=== PATIENT | female | born 1960 | race Caucasian/White ===

== ENCOUNTER 2023-07-13 12:13 | Inpatient (IN) | payer MEDICAID ==
[~2023-07-13] VITALS: Ht 162.6 cm; Wt 90.0 kg
[2023-07-13 12:43] LABS: BASOPHILS % (AUTO) 0.6 % (0-1); EOSINOPHILS # (AUTO) 0.1 X10'3 (0-0.9); HEMOGLOBIN 12.8 g/dl (12.0-16.0); LYMPHOCYTES # (AUTO) 0.5 X10'3 (1.1-4.8); LYMPHOCYTES % (AUTO) 5.6 % (21-51); MEAN CORPUSCULAR HEMOGLOBIN 28.3 PG (27.0-31.0); MEAN CORPUSCULAR HGB CONC 31.3 g/dL (33.0-36.5); MEAN CORPUSCULAR VOLUME 90.4 FL (78-98); MEAN PLATELET VOLUME 9.5 FL (7.4-10.4); MONOCYTES # (AUTO) 0.6 X10'3 (0-0.9); MONOCYTES % (AUTO) 7.5 % (2-12); NEUTROPHILS % (AUTO) 85.3 % (42-75); PLATELET COUNT 194 X10'3 (140-440); RED BLOOD COUNT 4.54 X10'6 (4.20-5.60); RED CELL DISTRIBUTION WIDTH 14.9 % (11.5-14.5); WHITE BLOOD COUNT 8.2 X10'3 (4.5-11.0)
[2023-07-13 12:56] LABS: ALANINE AMINOTRANSFERASE 31 U/L (12-78); ALBUMIN 3.5 G/DL (3.4-5.0); ALBUMIN/GLOBULIN RATIO 0.9 (1.1-1.5); ALKALINE PHOSPHATASE 92 IU/L (46-116); ANION GAP 8 (8-16); ASPARTATE AMINO TRANSFERASE 26 U/L (10-37); BILIRUBIN,TOTAL 0.4 MG/DL (0.1-1.0); BLOOD UREA NITROGEN 16 MG/DL (7-18); BUN/CREATININE RATIO 28.1 (10.0-20.0); CALCIUM 9.4 MG/DL (8.5-10.1); CHLORIDE 97 MMOL/L (99-107); CREATININE 0.57 MG/DL (0.40-0.90); GLUCOSE 138 MG/DL (70-104); POTASSIUM 3.6 MMOL/L (3.5-5.1); SODIUM 143 MMOL/L (135-145); TOTAL CARBON DIOXIDE 38.5 MMOL/L (24-32); TOTAL PROTEIN 7.6 G/DL (6.4-8.2); eCRCL 87 ML/MIN; eGFR > 90 ML/MIN
[2023-07-13 13:03] LABS: PRO BRAIN NATRIURETIC PEPTIDE 201 PG/ML (0-125)
[2023-07-13] MEDS ORDERED: albuterol 2.5 MG/3 ML nebule CONTNEB PRN (14:40)
[2023-07-13] MEDS ORDERED: ipratropium 0.5 MG/2.5ML nebule IH ONE (14:40)
[2023-07-13] MEDS ORDERED: methylPREDNISolone sod succ 125mg/2ml vial IV ONE (14:45)
[2023-07-13 16:19] LABS: D-DIMER 1.36 MG/L FEU (0-0.50)
[2023-07-13] MEDS ORDERED: iohexol 350MG/ML 100ml bottle IV ONE (17:12)
[2023-07-13] MEDS ORDERED: CefTRIAXone 2gm/D5W 50ml BAG 50 ML IV ONE (18:50)
[2023-07-14] VITALS (13 sets, daily range): BP systolic 114–127; BP diastolic 54–63; PULSE 72–90; RESP 12–20; TEMP 97; O2SAT 90–98
[2023-07-14] MEDS ORDERED: diphenhydrAMINE 50 mg/ml inj IV PRN (00:35)
[2023-07-14] MEDS ORDERED: ipratropium/albuterol 3ml nebule NEB PRN ×2 (00:35→12:45)
[2023-07-14] MEDS ORDERED: morphine 2 MG/ML inj. syringe IV PRN (00:35)
[2023-07-14] MEDS ORDERED: bisacodyl 10mg suppository rectal RC PRN (00:35)
[2023-07-14] MEDS ORDERED: magnesium hydroxide 30ml (MOM) UD suspension PO PRN (00:35)
[2023-07-14] MEDS ORDERED: acetaminophen 650mg rectal suppository RC PRN (00:35)
[2023-07-14] MEDS ORDERED: acetaminophen 325mg tablet PO PRN ×2 (00:35)
[2023-07-14] MEDS ORDERED: diphenhydrAMINE 25mg capsule PO PRN (00:35)
[2023-07-14] MEDS ORDERED: ondansetron 4mg rapidly disintigrating tab PO PRN (00:35)
[2023-07-14] MEDS ORDERED: mag hydrox/Alum hydrox/simeth 30ml oral suspension PO PRN (00:35)
[2023-07-14] MEDS ORDERED: ondansetron/PF 4mg/2ml inj IV PRN (00:35)
[2023-07-14 01:37] LABS: ABG BASE EXCESS 10.9 mmol/L (-2.0-2.0); ABG HCO3 40.1 mmol/L (22.0-26.0); ABG OXYGEN SATURATION 96.8 % (94-97); ABG PCO2 (T) 74.7 mmHg (32.0-45.0); ABG PH (T) 7.346 (7.350-7.450); ALLEN'S TEST POSITIVE; FHHb 3.2 % (0.0-5.0); FLOW 4 L/min; FMetHb 0.4 % (0.0-1.5); FO2Hb 95.4 % (94-97); MODE MASK - BIPAP; PATIENT TEMPERATURE 36.7; TOTAL HEMOGLOBIN 14.5 G/dl (12.0-16.0)
[2023-07-14] MEDS: normal saline 1000ml 1,000 ML IV SCH ×2 (01:50→10:35)
[2023-07-14 02:29] LABS: HEMOGLOBIN A1C 6.1 % (4.5-6.2)
[2023-07-14 02:31] LABS: APTT 24 SECONDS (22-32); PROTHROMBIN TIME 10.8 SECONDS (9.0-12.0)
[2023-07-14 02:40] LABS: MAGNESIUM 2.1 MG/DL (1.5-2.4); PHOSPHORUS 4.5 MG/DL (2.3-4.5); THYROID STIMULATING HORMONE 0.97 ulU/ml (0.34-4.50)
[2023-07-14 02:44] LABS: URINE AMPHETAMINE SCREEN NEGATIVE (Neg); URINE BARBITUATE SCREEN NEGATIVE (Neg); URINE BENZODIAZEPINES SCREEN NEGATIVE (Neg); URINE CANNABINOID SCREEN NEGATIVE (Neg); URINE COCAINE SCREEN NEGATIVE (Neg); URINE METHADONE SCREEN NEGATIVE (Neg); URINE OPIATE SCREEN NEGATIVE (Neg); URINE PHENCYCLIDINE SCREEN NEGATIVE (Neg)
[2023-07-14 02:51] LABS: BILIRUBIN,URINE NEGATIVE (Neg); CLARITY,URINE CLEAR (Clear); COLOR,URINE YELLOW (Yellow); GLUCOSE, URINE NEGATIVE (Neg); KETONES,URINE NEGATIVE (Neg); LEUKOCYTE ESTERASE ,URINE NEGATIVE (Neg); NITRITES, URINE NEGATIVE (Neg); OCCULT BLOOD,URINE TRACE-INTACT (Neg); PH,URINE 7.5 (4.8-8.0); PROTEIN,URINE TRACE mg/dl (Neg); UROBILINOGEN,URINE 0.2 E.U/dL (0.2-1.0)
[2023-07-14 02:53] LABS: UA COLLECTION TYPE STRAIGHT CATH
[2023-07-14 02:58] LABS: AMORPHOUS PHOSPHATES 2+; MUCUS STRANDS NONE SEEN /LPF (Neg); SQUAMOUS EPITHELIAL CELL,UR FEW /LPF (FEW)
[2023-07-14 02:59] LABS: BACTERIA,URINE NONE SEEN /HPF (Neg); WBC,URINE 0-4 /HPF (0-4)
[2023-07-14] MEDS: docusate sod 100mg capsule PO SCH ×2 (07:09→20:40)
[2023-07-14 07:13] LABS: ABG BASE EXCESS 7.6 mmol/L (-2.0-2.0); ABG HCO3 35.3 mmol/L (22.0-26.0); ABG PCO2 (T) 63.7 mmHg (32.0-45.0); ABG PH (T) 7.361 (7.350-7.450); ABG PO2 (T) 68.9 mmHg (75.0-100.0); ALLEN'S TEST POSITIVE; FCOHb 0.9 % (0.0-3.9); FHHb 6.9 % (0.0-5.0); FMetHb 0.2 % (0.0-1.5); MODE MASK - BIPAP; PATIENT TEMPERATURE 36.8; TOTAL HEMOGLOBIN 13.6 G/dl (12.0-16.0)
[2023-07-14] MEDS: CefTRIAXone/D5W-Rocephin 1gm 50 ML IV SCH (07:48)
[2023-07-14] MEDS: heparin, porcine 5000 units/ml vial SQ SCH ×2 (07:49→20:41)
[2023-07-14] MEDS ORDERED: methylPREDNISolone sod succ 125mg/2ml vial IV SCH (08:00)
[2023-07-14] MEDS: azithromycin/NS 500mg/250ml 250 ML IV SCH (09:10)
[2023-07-14] MEDS: pantoprazole 40mg Tablet.DR PO SCH (09:10)
[2023-07-14] MEDS: methylPREDNISolone sod succ/PF 40mg inj. IV SCH ×2 (14:37→20:40)
[2023-07-14] MEDS: ipratropium/albuterol 3ml nebule NEB SCH ×2 (19:43→23:38)
[2023-07-14] MEDS: HYDROcodone/acetaminophen 5mg/325mg tablet PO PRN (20:41)
[2023-07-14] MEDS ORDERED: temazepam 15mg capsule PO PRN (21:00)
[2023-07-15] VITALS (18 sets, daily range): BP systolic 115–145; BP diastolic 55–85; PULSE 50–89; RESP 16–20; TEMP 97.2–98.8; O2SAT 94–97
[2023-07-15] MEDS: HYDROcodone/acetaminophen 5mg/325mg tablet PO PRN (01:54)
[2023-07-15] MEDS: methylPREDNISolone sod succ/PF 40mg inj. IV SCH ×4 (01:55→21:32)
[2023-07-15] MEDS: ipratropium/albuterol 3ml nebule NEB SCH ×6 (03:14→23:31)
[2023-07-15 06:56] LABS: BASOPHILS % (AUTO) 0.2 % (0-1); EOSINOPHILS % (AUTO) 0 % (0-6); HEMATOCRIT 40.9 % (35.0-45.0); HEMOGLOBIN 13.1 g/dl (12.0-16.0); LYMPHOCYTES # (AUTO) 0.4 X10'3 (1.1-4.8); LYMPHOCYTES % (AUTO) 6.1 % (21-51); MEAN CORPUSCULAR HEMOGLOBIN 28.7 PG (27.0-31.0); MEAN CORPUSCULAR VOLUME 89.6 FL (78-98); MONOCYTES # (AUTO) 0.2 X10'3 (0-0.9); MONOCYTES % (AUTO) 2.4 % (2-12); NEUTROPHILS # (AUTO) 6.4 X10'3 (1.8-7.7); NEUTROPHILS % (AUTO) 91.3 % (42-75); PLATELET COUNT 210 X10'3 (140-440); RED BLOOD COUNT 4.57 X10'6 (4.20-5.60); RED CELL DISTRIBUTION WIDTH 14.5 % (11.5-14.5); WHITE BLOOD COUNT 7.1 X10'3 (4.5-11.0)
[2023-07-15 07:16] LABS: ALANINE AMINOTRANSFERASE 40 U/L (12-78); ALBUMIN 3.2 G/DL (3.4-5.0); ALBUMIN/GLOBULIN RATIO 0.8 (1.1-1.5); ALKALINE PHOSPHATASE 86 IU/L (46-116); ANION GAP 6 (8-16); ASPARTATE AMINO TRANSFERASE 25 U/L (10-37); BILIRUBIN,TOTAL 0.4 MG/DL (0.1-1.0); BLOOD UREA NITROGEN 18 MG/DL (7-18); BUN/CREATININE RATIO 32.1 (10.0-20.0); CALCIUM 9.5 MG/DL (8.5-10.1); CHLORIDE 101 MMOL/L (99-107); CHOL/HDL RATIO 3.5 (0.00-4.99); CHOLESTEROL 279 MG/DL (0-200); CREATININE 0.56 MG/DL (0.40-0.90); GLUCOSE 164 MG/DL (70-104); HDL CHOLESTEROL 79 MG/DL (35-60); LDL CHOLESTEROL 158 MG/DL (50-100); POTASSIUM 3.7 MMOL/L (3.5-5.1); SODIUM 142 MMOL/L (135-145); TOTAL PROTEIN 7.2 G/DL (6.4-8.2); TRIGLYCERIDES 82 MG/DL (20-135); eCRCL 89 ML/MIN; eGFR > 90 ML/MIN
[2023-07-15] MEDS: docusate sod 100mg capsule PO SCH ×2 (08:00→20:00)
[2023-07-15] MEDS: heparin, porcine 5000 units/ml vial SQ SCH ×2 (10:51→21:30)
[2023-07-15] MEDS: CefTRIAXone/D5W-Rocephin 1gm 50 ML IV SCH (10:51)
[2023-07-15] MEDS: pantoprazole 40mg Tablet.DR PO SCH (10:53)
[2023-07-15] MEDS: azithromycin/NS 500mg/250ml 250 ML IV SCH (11:46)
[2023-07-16] VITALS (19 sets, daily range): BP systolic 131–156; BP diastolic 74–82; PULSE 76–100; RESP 16–20; TEMP 97.4–99.3; O2SAT 93–99
[2023-07-16] MEDS: methylPREDNISolone sod succ/PF 40mg inj. IV SCH ×4 (01:27→19:36)
[2023-07-16] MEDS: ipratropium/albuterol 3ml nebule NEB SCH ×6 (03:13→22:52)
[2023-07-16 07:26] LABS: BASOPHILS % (AUTO) 0.1 % (0-1); EOSINOPHILS % (AUTO) 0 % (0-6); HEMATOCRIT 38.9 % (35.0-45.0); HEMOGLOBIN 12.6 g/dl (12.0-16.0); LYMPHOCYTES # (AUTO) 0.4 X10'3 (1.1-4.8); LYMPHOCYTES % (AUTO) 7.6 % (21-51); MEAN CORPUSCULAR HGB CONC 32.3 g/dL (33.0-36.5); MEAN CORPUSCULAR VOLUME 89.7 FL (78-98); MEAN PLATELET VOLUME 9.8 FL (7.4-10.4); MONOCYTES # (AUTO) 0.1 X10'3 (0-0.9); MONOCYTES % (AUTO) 2.9 % (2-12); NEUTROPHILS # (AUTO) 4.6 X10'3 (1.8-7.7); NEUTROPHILS % (AUTO) 89.4 % (42-75); PLATELET COUNT 185 X10'3 (140-440); RED BLOOD COUNT 4.34 X10'6 (4.20-5.60); RED CELL DISTRIBUTION WIDTH 14.9 % (11.5-14.5); WHITE BLOOD COUNT 5.2 X10'3 (4.5-11.0)
[2023-07-16 08:09] LABS: ALANINE AMINOTRANSFERASE 44 U/L (12-78); ALBUMIN 3.2 G/DL (3.4-5.0); ALBUMIN/GLOBULIN RATIO 0.9 (1.1-1.5); ALKALINE PHOSPHATASE 80 IU/L (46-116); ANION GAP 7 (8-16); ASPARTATE AMINO TRANSFERASE 24 U/L (10-37); BILIRUBIN,TOTAL 0.2 MG/DL (0.1-1.0); BLOOD UREA NITROGEN 14 MG/DL (7-18); BUN/CREATININE RATIO 26.4 (10.0-20.0); CALCIUM 8.9 MG/DL (8.5-10.1); CHLORIDE 105 MMOL/L (99-107); CREATININE 0.53 MG/DL (0.40-0.90); GLUCOSE 131 MG/DL (70-104); POTASSIUM 3.4 MMOL/L (3.5-5.1); SODIUM 145 MMOL/L (135-145); TOTAL CARBON DIOXIDE 33.1 MMOL/L (24-32); TOTAL PROTEIN 6.9 G/DL (6.4-8.2); eCRCL 94 ML/MIN; eGFR > 90 ML/MIN
[2023-07-16] MEDS: CefTRIAXone/D5W-Rocephin 1gm 50 ML IV SCH (10:34)
[2023-07-16] MEDS: heparin, porcine 5000 units/ml vial SQ SCH ×2 (10:37→19:36)
[2023-07-16] MEDS: docusate sod 100mg capsule PO SCH ×2 (10:39→19:37)
[2023-07-16] MEDS: azithromycin/NS 500mg/250ml 250 ML IV SCH (11:49)
[2023-07-16] MEDS: pantoprazole 40mg Tablet.DR PO SCH (15:13)
[2023-07-16] MEDS ORDERED: potassium Cl 40MEQ/1/2NS 520ml 520 ML IV PRN ×2 (20:10)
[2023-07-16] MEDS ORDERED: potassium Cl 20 mEq SR tablet PO PRN (20:10)
[2023-07-16] MEDS: HYDROcodone/acetaminophen 5mg/325mg tablet PO PRN (20:24)
[2023-07-17] VITALS (10 sets, daily range): BP systolic 93–146; BP diastolic 44–89; PULSE 71–88; RESP 16–20; TEMP 97.9–98.3; O2SAT 92–99
[2023-07-17] MEDS: potassium Cl 20 mEq SR tablet PO PRN ×2 (00:55→05:06)
[2023-07-17] MEDS: methylPREDNISolone sod succ/PF 40mg inj. IV SCH ×3 (01:41→13:51)
[2023-07-17] MEDS: ipratropium/albuterol 3ml nebule NEB SCH ×4 (03:25→16:05)
[2023-07-17 07:15] LABS: BASOPHILS % (AUTO) 0 % (0-1); EOSINOPHILS % (AUTO) 0 % (0-6); HEMATOCRIT 36.6 % (35.0-45.0); LYMPHOCYTES # (AUTO) 0.4 X10'3 (1.1-4.8); LYMPHOCYTES % (AUTO) 6.5 % (21-51); MEAN CORPUSCULAR HEMOGLOBIN 29.3 PG (27.0-31.0); MEAN CORPUSCULAR HGB CONC 32.9 g/dL (33.0-36.5); MEAN CORPUSCULAR VOLUME 88.9 FL (78-98); MEAN PLATELET VOLUME 9.9 FL (7.4-10.4); MONOCYTES # (AUTO) 0.2 X10'3 (0-0.9); MONOCYTES % (AUTO) 2.8 % (2-12); NEUTROPHILS # (AUTO) 6.1 X10'3 (1.8-7.7); NEUTROPHILS % (AUTO) 90.7 % (42-75); PLATELET COUNT 169 X10'3 (140-440); RED BLOOD COUNT 4.12 X10'6 (4.20-5.60); RED CELL DISTRIBUTION WIDTH 14.6 % (11.5-14.5); WHITE BLOOD COUNT 6.7 X10'3 (4.5-11.0)
[2023-07-17 07:29] LABS: ALANINE AMINOTRANSFERASE 40 U/L (12-78); ALBUMIN/GLOBULIN RATIO 0.9 (1.1-1.5); ALKALINE PHOSPHATASE 74 IU/L (46-116); ANION GAP 5 (8-16); ASPARTATE AMINO TRANSFERASE 21 U/L (10-37); BILIRUBIN,TOTAL 0.2 MG/DL (0.1-1.0); BLOOD UREA NITROGEN 14 MG/DL (7-18); BUN/CREATININE RATIO 31.1 (10.0-20.0); CALCIUM 9.1 MG/DL (8.5-10.1); CHLORIDE 105 MMOL/L (99-107); CREATININE 0.45 MG/DL (0.40-0.90); GLUCOSE 145 MG/DL (70-104); POTASSIUM 4.2 MMOL/L (3.5-5.1); SODIUM 141 MMOL/L (135-145); TOTAL CARBON DIOXIDE 30.8 MMOL/L (24-32); TOTAL PROTEIN 6.4 G/DL (6.4-8.2); eCRCL 111 ML/MIN; eGFR > 90 ML/MIN
[2023-07-17] MEDS ORDERED: K and/or MAG REPLACEMENT MC SCH (08:00)
[2023-07-17] MEDS: normal saline 1000ml 1,000 ML IV SCH (08:53)
[2023-07-17] MEDS: CefTRIAXone/D5W-Rocephin 1gm 50 ML IV SCH (09:25)
[2023-07-17] MEDS: pantoprazole 40mg Tablet.DR PO SCH (09:28)
[2023-07-17] MEDS: docusate sod 100mg capsule PO SCH (09:28)
[2023-07-17] MEDS: heparin, porcine 5000 units/ml vial SQ SCH (09:29)
[2023-07-17] MEDS: azithromycin/NS 500mg/250ml 250 ML IV SCH (10:31)
[2023-07-18] MEDS ORDERED: azithromycin 250mg tablet PO SCH (08:00)
== END 2023-07-17 16:50 | DRG 139 ==
LOC: ER 12:14 → ED HOLD 07-14 00:37 → PCU 3S 07-14 08:27
PROVIDERS: ADMIT Family Medicine; ATTEND Family Medicine
PROC: 5A09357 Assistance with Respiratory Ventilation, Less than 24 Consecutive Hours, Continuous Positive Airway Pressure (ICD-10-PCS; principal; 2023-07-14)
PROC: 5A09357 Assistance with Respiratory Ventilation, Less than 24 Consecutive Hours, Continuous Positive Airway Pressure (ICD-10-PCS; 2023-07-16)
DX: J18.9 Pneumonia, unspecified organism (principal); J96.01 Acute respiratory failure with hypoxia; G93.49 Other encephalopathy; J96.02 Acute respiratory failure with hypercapnia; I11.0 Hypertensive heart disease with heart failure; I50.32 Chronic diastolic (congestive) heart failure; J44.0 Chronic obstructive pulmonary disease with (acute) lower respiratory infection; Z20.822 Contact with and (suspected) exposure to COVID-19; G47.33 Obstructive sleep apnea (adult) (pediatric); G89.4 Chronic pain syndrome; I16.0 Hypertensive urgency; I25.10 Atherosclerotic heart disease of native coronary artery without angina pectoris; J44.1 Chronic obstructive pulmonary disease with (acute) exacerbation; Z88.1 Allergy status to other antibiotic agents; Z98.1 Arthrodesis status; Z88.8 Allergy status to other drugs, medicaments and biological substances
CPT/HCPCS: 36415; 36600; 70450; 71045; 71275; 72125; 80053; 80061; 80305; 81001; 82803; 83036; 83605; 83735; 83880; 84100; 84145; 84443; 84484; 85018; 85025; 85379; 85610; 85730; 87040; 87811; 93306; 94640; 94660; 94760; 97110; 97161; 97530; 99285; A4338; A4620; C1758; G0378; J0456; J0696; J1644; J2920; J2930; J3490; J7030; Q9967

== ENCOUNTER 2023-08-17 08:56 | Inpatient (IN) | payer MEDICAID ==
[~2023-08-17] VITALS: Ht 157.5 cm; Wt 84.7 kg
[2023-08-17] MEDS ORDERED: ipratropium/albuterol 3ml nebule NEB ONE (11:15)
[2023-08-17 11:29] LABS: BASOPHILS % (AUTO) 0.3 % (0-1); EOSINOPHILS # (AUTO) 0.1 X10'3 (0-0.9); EOSINOPHILS % (AUTO) 1.3 % (0-6); HEMATOCRIT 35.8 % (35.0-45.0); HEMOGLOBIN 11.6 g/dl (12.0-16.0); LYMPHOCYTES # (AUTO) 1.3 X10'3 (1.1-4.8); LYMPHOCYTES % (AUTO) 22.6 % (21-51); MEAN CORPUSCULAR HEMOGLOBIN 28.9 PG (27.0-31.0); MEAN CORPUSCULAR HGB CONC 32.4 g/dL (33.0-36.5); MEAN CORPUSCULAR VOLUME 88.9 FL (78-98); MEAN PLATELET VOLUME 8.5 FL (7.4-10.4); MONOCYTES # (AUTO) 0.4 X10'3 (0-0.9); NEUTROPHILS # (AUTO) 3.8 X10'3 (1.8-7.7); NEUTROPHILS % (AUTO) 67.8 % (42-75); PLATELET COUNT 182 X10'3 (140-440); RED BLOOD COUNT 4.03 X10'6 (4.20-5.60); RED CELL DISTRIBUTION WIDTH 14.2 % (11.5-14.5); WHITE BLOOD COUNT 5.6 X10'3 (4.5-11.0)
[2023-08-17 11:52] LABS: ALANINE AMINOTRANSFERASE 36 U/L (12-78); ALBUMIN 2.8 G/DL (3.4-5.0); ALBUMIN/GLOBULIN RATIO 0.9 (1.1-1.5); ALKALINE PHOSPHATASE 60 IU/L (46-116); ANION GAP 3 (8-16); ASPARTATE AMINO TRANSFERASE 12 U/L (10-37); BILIRUBIN,TOTAL 0.1 MG/DL (0.1-1.0); BLOOD UREA NITROGEN 16 MG/DL (7-18); BUN/CREATININE RATIO 36.4 (10.0-20.0); CALCIUM 9.4 MG/DL (8.5-10.1); CHLORIDE 103 MMOL/L (99-107); CREATININE 0.44 MG/DL (0.40-0.90); GLUCOSE 125 MG/DL (70-104); POTASSIUM 3.4 MMOL/L (3.5-5.1); PRO BRAIN NATRIURETIC PEPTIDE 211 PG/ML (0-125); SODIUM 144 MMOL/L (135-145); TOTAL CARBON DIOXIDE 37.8 MMOL/L (24-32); TOTAL PROTEIN 5.8 G/DL (6.4-8.2); eCRCL 104 ML/MIN; eGFR > 90 ML/MIN
[2023-08-17 12:29] VITALS: PULSE 77; PULSE 78; RESP 15; RESP 18; O2SAT 98
[2023-08-17] MEDS ORDERED: LORazepam 2 mg/ml vial IV STA (14:54)
[2023-08-17] MEDS ORDERED: potassium Cl 20 mEq SR tablet PO STA (14:54)
[2023-08-17 15:22] LABS: BILIRUBIN,URINE NEGATIVE (Neg); CLARITY,URINE CLOUDY (Clear); COLOR,URINE YELLOW (Yellow); GLUCOSE, URINE NEGATIVE (Neg); KETONES,URINE NEGATIVE (Neg); LEUKOCYTE ESTERASE ,URINE TRACE (Neg); NITRITES, URINE POSITIVE (Neg); OCCULT BLOOD,URINE TRACE-INTACT (Neg); PH,URINE 5.5 (4.8-8.0); PROTEIN,URINE NEGATIVE (Neg); UROBILINOGEN,URINE 0.2 E.U/dL (0.2-1.0)
[2023-08-17] MEDS ORDERED: magnesium Cl slow-release 64mg tablet PO PRN (15:25)
[2023-08-17] MEDS ORDERED: magnesium 4gm in 100ml NS 100 ML IV PRN (15:25)
[2023-08-17] MEDS ORDERED: magnesium hydroxide 30ml (MOM) UD suspension PO PRN (15:25)
[2023-08-17] MEDS ORDERED: magnesium 2GM in 50ml NS 50 ML IV PRN (15:25)
[2023-08-17] MEDS ORDERED: potassium Cl 20 mEq SR tablet PO PRN ×2 (15:25)
[2023-08-17] MEDS ORDERED: potassium Cl 40MEQ/1/2NS 520ml 520 ML IV PRN (15:25)
[2023-08-17] MEDS ORDERED: mag hydrox/Alum hydrox/simeth 30ml oral suspension PO PRN (15:25)
[2023-08-17] MEDS ORDERED: normal saline 1000ml 1,000 ML IV STA (15:31)
[2023-08-17 15:39] LABS: UA COLLECTION TYPE FOLEY CATH
[2023-08-17 15:43] LABS: WBC,URINE 30-50 /HPF (0-4)
[2023-08-17 15:46] LABS: AMORPHOUS URATES 1+; BACTERIA,URINE 3+ /HPF (Neg); CAL OXALATE CRYSTALS 1+ /HPF (NEGATIVE); HYALINE CASTS 0-3 /LPF (NEGATIVE); MUCUS STRANDS FEW /LPF (Neg); RENAL CELLS, URINE FEW /HPF; SQUAMOUS EPITHELIAL CELL,UR FEW /LPF (FEW); WBC CLUMPS,URINE FEW /HPF (NEGATIVE); YEAST FEW /HPF (NEGATIVE)
[2023-08-17] MEDS ORDERED: ENOX40DI8 SUBCUT (15:54)
[2023-08-17] MEDS ORDERED: GLIP5TAB23 PO (15:54)
[2023-08-17] MEDS ORDERED: AMLO2.5T2 PO (15:54)
[2023-08-17] MEDS ORDERED: POLY17PO10 PO (15:54)
[2023-08-17] MEDS ORDERED: PRED1TAB PO (15:54)
[2023-08-17] MEDS ORDERED: ALB0.5UD NEB (15:54)
[2023-08-17] MEDS ORDERED: INSU100V49 (15:54)
[2023-08-17] MEDS ORDERED: NITR0.4T51 SL (15:54)
[2023-08-17] MEDS ORDERED: ATR0.5NEB IH (15:54)
[2023-08-17] MEDS ORDERED: ALPR-624 PO (15:54)
[2023-08-17] MEDS ORDERED: ACET325T54 PO (15:54)
[2023-08-17] MEDS ORDERED: HYDR-3965 PO (15:54)
[2023-08-17] MEDS ORDERED: PANT40TA54 PO (15:54)
[2023-08-17] MEDS ORDERED: CITA20TA28 PO (15:54)
[2023-08-17] MEDS ORDERED: SENN-294 PO (15:54)
[2023-08-17] MEDS ORDERED: metoprolol tartrate 1mg/ml inj IV PRN (15:55)
[2023-08-17] MEDS ORDERED: regadenoson 0.4mg/5ml syringe IV PRN (15:55)
[2023-08-17] MEDS ORDERED: nitroGLYCERIN 0.4mg SUBLingual tab SL PRN (15:55)
[2023-08-17] MEDS ORDERED: aminophylline 250mg/10ml inj. IV PRN (15:55)
[2023-08-17] MEDS: K and/or MAG REPLACEMENT MC SCH (20:00)
[2023-08-17 22:10] VITALS: BP 105/46; PULSE 85; RESP 18; TEMP 97.8; O2SAT 85
[2023-08-17] MEDS: acetaminophen 325mg tablet PO PRN (22:42)
[2023-08-18 02:00] VITALS: BP 105/50; PULSE 74; RESP 20; TEMP 98; O2SAT 96
[2023-08-18 06:30] VITALS: BP 140/80; PULSE 80; RESP 16; TEMP 98.5; O2SAT 100
[2023-08-18 07:16] LABS: BASOPHILS % (AUTO) 0.3 % (0-1); EOSINOPHILS # (AUTO) 0.1 X10'3 (0-0.9); EOSINOPHILS % (AUTO) 1.8 % (0-6); HEMATOCRIT 33.2 % (35.0-45.0); HEMOGLOBIN 10.9 g/dl (12.0-16.0); LYMPHOCYTES # (AUTO) 1.1 X10'3 (1.1-4.8); LYMPHOCYTES % (AUTO) 19.3 % (21-51); MEAN CORPUSCULAR HEMOGLOBIN 28.9 PG (27.0-31.0); MEAN CORPUSCULAR HGB CONC 32.9 g/dL (33.0-36.5); MEAN CORPUSCULAR VOLUME 87.8 FL (78-98); MEAN PLATELET VOLUME 8.4 FL (7.4-10.4); MONOCYTES # (AUTO) 0.5 X10'3 (0-0.9); MONOCYTES % (AUTO) 8.9 % (2-12); NEUTROPHILS # (AUTO) 4.1 X10'3 (1.8-7.7); NEUTROPHILS % (AUTO) 69.7 % (42-75); PLATELET COUNT 166 X10'3 (140-440); RED BLOOD COUNT 3.78 X10'6 (4.20-5.60); RED CELL DISTRIBUTION WIDTH 14.6 % (11.5-14.5); WHITE BLOOD COUNT 5.9 X10'3 (4.5-11.0)
[2023-08-18 07:40] LABS: ANION GAP 4 (8-16); BILIRUBIN,TOTAL 0.4 MG/DL (0.1-1.0); BLOOD UREA NITROGEN 9 MG/DL (7-18); BUN/CREATININE RATIO 21.4 (10.0-20.0); CALCIUM 9.3 MG/DL (8.5-10.1); CHLORIDE 102 MMOL/L (99-107); CREATININE 0.42 MG/DL (0.40-0.90); GLUCOSE 123 MG/DL (70-104); POTASSIUM 3.5 MMOL/L (3.5-5.1); SODIUM 142 MMOL/L (135-145); TOTAL CARBON DIOXIDE 35.6 MMOL/L (24-32); TOTAL PROTEIN 5.8 G/DL (6.4-8.2); eCRCL 108 ML/MIN; eGFR > 90 ML/MIN
[2023-08-18 07:41] LABS: ALANINE AMINOTRANSFERASE 34 U/L (12-78); ALBUMIN 2.7 G/DL (3.4-5.0); ALBUMIN/GLOBULIN RATIO 0.9 (1.1-1.5); ALKALINE PHOSPHATASE 59 IU/L (46-116); ASPARTATE AMINO TRANSFERASE 13 U/L (10-37)
[2023-08-18] MEDS: K and/or MAG REPLACEMENT MC SCH ×2 (08:13→20:00)
[2023-08-18] MEDS: morphine 2 MG/ML inj. syringe IV PRN (09:56)
[2023-08-18] MEDS: ondansetron/PF 4mg/2ml inj IV PRN (10:28)
[2023-08-18 10:30] VITALS: BP 108/53; PULSE 81; RESP 14; TEMP 98.3; O2SAT 96
[2023-08-18] MEDS: CefTRIAXone/D5W-Rocephin 1gm 50 ML IV SCH (13:00)
[2023-08-18 15:30] VITALS: BP 109/54; PULSE 79; RESP 15; TEMP 97.7; O2SAT 98
[2023-08-18 18:00] VITALS: BP 109/78; PULSE 88; RESP 14; TEMP 97.3; O2SAT 95
[2023-08-18] MEDS: acetaminophen 325mg tablet PO PRN (21:50)
[2023-08-18 22:00] VITALS: BP 101/51; PULSE 101; RESP 11; TEMP 97.5; O2SAT 90
[2023-08-19] VITALS (10 sets, daily range): BP systolic 116–133; BP diastolic 50–89; PULSE 67–102; RESP 14–20; TEMP 96.9–98.4; O2SAT 95–99
[2023-08-19 07:22] LABS: BASOPHILS % (AUTO) 0.4 % (0-1); EOSINOPHILS # (AUTO) 0.1 X10'3 (0-0.9); EOSINOPHILS % (AUTO) 2.3 % (0-6); HEMATOCRIT 36.4 % (35.0-45.0); HEMOGLOBIN 11.7 g/dl (12.0-16.0); LYMPHOCYTES # (AUTO) 0.9 X10'3 (1.1-4.8); LYMPHOCYTES % (AUTO) 19.7 % (21-51); MEAN CORPUSCULAR HEMOGLOBIN 28.3 PG (27.0-31.0); MEAN CORPUSCULAR HGB CONC 32.1 g/dL (33.0-36.5); MEAN CORPUSCULAR VOLUME 88.2 FL (78-98); MEAN PLATELET VOLUME 8.8 FL (7.4-10.4); MONOCYTES # (AUTO) 0.5 X10'3 (0-0.9); MONOCYTES % (AUTO) 10.8 % (2-12); NEUTROPHILS # (AUTO) 3.2 X10'3 (1.8-7.7); NEUTROPHILS % (AUTO) 66.8 % (42-75); PLATELET COUNT 176 X10'3 (140-440); RED BLOOD COUNT 4.13 X10'6 (4.20-5.60); WHITE BLOOD COUNT 4.7 X10'3 (4.5-11.0)
[2023-08-19 07:31] LABS: ALANINE AMINOTRANSFERASE 37 U/L (12-78); ALBUMIN 2.8 G/DL (3.4-5.0); ALBUMIN/GLOBULIN RATIO 0.8 (1.1-1.5); ALKALINE PHOSPHATASE 62 IU/L (46-116); ANION GAP 5 (8-16); ASPARTATE AMINO TRANSFERASE 16 U/L (10-37); BILIRUBIN,TOTAL 0.3 MG/DL (0.1-1.0); BLOOD UREA NITROGEN 10 MG/DL (7-18); BUN/CREATININE RATIO 24.4 (10.0-20.0); CALCIUM 9.3 MG/DL (8.5-10.1); CHLORIDE 101 MMOL/L (99-107); CREATININE 0.41 MG/DL (0.40-0.90); GLUCOSE 153 MG/DL (70-104); POTASSIUM 3.7 MMOL/L (3.5-5.1); SODIUM 141 MMOL/L (135-145); TOTAL CARBON DIOXIDE 34.8 MMOL/L (24-32); TOTAL PROTEIN 6.2 G/DL (6.4-8.2); eCRCL 111 ML/MIN; eGFR > 90 ML/MIN
[2023-08-19] MEDS: K and/or MAG REPLACEMENT MC SCH ×2 (09:56→20:00)
[2023-08-19] MEDS: CefTRIAXone/D5W-Rocephin 1gm 50 ML IV SCH (12:53)
[2023-08-19] MEDS ORDERED: regadenoson 0.4mg/5ml syringe IV PRN (13:10)
[2023-08-19] MEDS ORDERED: aminophylline 250mg/10ml inj. IV PRN (13:10)
[2023-08-19] MEDS ORDERED: nitroGLYCERIN 0.4mg SUBLingual tab SL PRN (13:10)
[2023-08-19] MEDS ORDERED: metoprolol tartrate 1mg/ml inj IV PRN (13:10)
[2023-08-19] MEDS: ondansetron/PF 4mg/2ml inj IV PRN (18:59)
[2023-08-19] MEDS ORDERED: morphine 2 MG/ML inj. syringe IV ONE (19:25)
[2023-08-19] MEDS: morphine 2 MG/ML inj. syringe IV PRN (19:30)
[2023-08-20] VITALS (8 sets, daily range): BP systolic 114–159; BP diastolic 50–77; PULSE 74–85; RESP 16–20; TEMP 97.7–98.8; O2SAT 96–100
[2023-08-20] MEDS: acetaminophen 325mg tablet PO PRN ×2 (01:58→21:17)
[2023-08-20 07:46] LABS: BASOPHILS % (AUTO) 0.5 % (0-1); EOSINOPHILS # (AUTO) 0.1 X10'3 (0-0.9); EOSINOPHILS % (AUTO) 2.4 % (0-6); HEMATOCRIT 38.6 % (35.0-45.0); HEMOGLOBIN 12.6 g/dl (12.0-16.0); LYMPHOCYTES # (AUTO) 0.9 X10'3 (1.1-4.8); LYMPHOCYTES % (AUTO) 21.8 % (21-51); MEAN CORPUSCULAR HGB CONC 32.7 g/dL (33.0-36.5); MEAN CORPUSCULAR VOLUME 88.5 FL (78-98); MEAN PLATELET VOLUME 7.9 FL (7.4-10.4); MONOCYTES # (AUTO) 0.4 X10'3 (0-0.9); MONOCYTES % (AUTO) 10.5 % (2-12); NEUTROPHILS # (AUTO) 2.6 X10'3 (1.8-7.7); NEUTROPHILS % (AUTO) 64.8 % (42-75); PLATELET COUNT 167 X10'3 (140-440); RED BLOOD COUNT 4.36 X10'6 (4.20-5.60); RED CELL DISTRIBUTION WIDTH 14.8 % (11.5-14.5)
[2023-08-20] MEDS: K and/or MAG REPLACEMENT MC SCH ×2 (08:00→20:00)
[2023-08-20 08:17] LABS: ANION GAP 5 (8-16); BLOOD UREA NITROGEN 8 MG/DL (7-18); CHLORIDE 101 MMOL/L (99-107); GLUCOSE 136 MG/DL (70-104); POTASSIUM 3.8 MMOL/L (3.5-5.1); SODIUM 141 MMOL/L (135-145); TOTAL CARBON DIOXIDE 34.6 MMOL/L (24-32)
[2023-08-20 08:18] LABS: ALANINE AMINOTRANSFERASE 43 U/L (12-78); ALBUMIN 3.1 G/DL (3.4-5.0); ALBUMIN/GLOBULIN RATIO 0.9 (1.1-1.5); ALKALINE PHOSPHATASE 66 IU/L (46-116); ASPARTATE AMINO TRANSFERASE 20 U/L (10-37); BILIRUBIN,TOTAL 0.3 MG/DL (0.1-1.0); CALCIUM 9.4 MG/DL (8.5-10.1); MAGNESIUM 1.9 MG/DL (1.5-2.4); PHOSPHORUS 4.2 MG/DL (2.3-4.5); TOTAL PROTEIN 6.5 G/DL (6.4-8.2); eCRCL 91 ML/MIN; eGFR > 90 ML/MIN
[2023-08-20] MEDS: CefTRIAXone/D5W-Rocephin 1gm 50 ML IV SCH (08:25)
[2023-08-21 02:00] VITALS: BP 92/40; PULSE 86; RESP 18; TEMP 98; O2SAT 90
[2023-08-21] MEDS: acetaminophen 325mg tablet PO PRN (02:51)
[2023-08-21] MEDS: CefTRIAXone/D5W-Rocephin 1gm 50 ML IV SCH (07:18)
[2023-08-21 07:33] VITALS: RESP 17; O2SAT 100
[2023-08-21 07:39] VITALS: BP 130/80; PULSE 78; RESP 17; TEMP 97.6; O2SAT 100
[2023-08-21] MEDS: K and/or MAG REPLACEMENT MC SCH (08:00)
[2023-08-21 11:35] VITALS: BP 108/72; PULSE 83; RESP 18; TEMP 97.6; O2SAT 98
[2023-08-21 12:12] LABS: BASOPHILS % (AUTO) 0.4 % (0-1); EOSINOPHILS # (AUTO) 0.1 X10'3 (0-0.9); EOSINOPHILS % (AUTO) 2.5 % (0-6); HEMATOCRIT 36.8 % (35.0-45.0); HEMOGLOBIN 11.9 g/dl (12.0-16.0); LYMPHOCYTES # (AUTO) 0.7 X10'3 (1.1-4.8); LYMPHOCYTES % (AUTO) 19.7 % (21-51); MEAN CORPUSCULAR HEMOGLOBIN 28.5 PG (27.0-31.0); MEAN CORPUSCULAR HGB CONC 32.4 g/dL (33.0-36.5); MEAN CORPUSCULAR VOLUME 87.9 FL (78-98); MONOCYTES # (AUTO) 0.4 X10'3 (0-0.9); MONOCYTES % (AUTO) 11.8 % (2-12); NEUTROPHILS # (AUTO) 2.4 X10'3 (1.8-7.7); NEUTROPHILS % (AUTO) 65.6 % (42-75); PLATELET COUNT 171 X10'3 (140-440); RED BLOOD COUNT 4.19 X10'6 (4.20-5.60); RED CELL DISTRIBUTION WIDTH 14.7 % (11.5-14.5); WHITE BLOOD COUNT 3.7 X10'3 (4.5-11.0)
[2023-08-21 12:26] LABS: ALANINE AMINOTRANSFERASE 38 U/L (12-78); ALBUMIN 2.6 G/DL (3.4-5.0); ALBUMIN/GLOBULIN RATIO 0.7 (1.1-1.5); ALKALINE PHOSPHATASE 65 IU/L (46-116); ANION GAP 5 (8-16); ASPARTATE AMINO TRANSFERASE 13 U/L (10-37); BILIRUBIN,TOTAL 0.2 MG/DL (0.1-1.0); BLOOD UREA NITROGEN 5 MG/DL (7-18); BUN/CREATININE RATIO 10.6 (10.0-20.0); CALCIUM 9.2 MG/DL (8.5-10.1); CHLORIDE 103 MMOL/L (99-107); CREATININE 0.47 MG/DL (0.40-0.90); GLUCOSE 160 MG/DL (70-104); MAGNESIUM 1.8 MG/DL (1.5-2.4); PHOSPHORUS 3.9 MG/DL (2.3-4.5); POTASSIUM 3.5 MMOL/L (3.5-5.1); SODIUM 143 MMOL/L (135-145); TOTAL CARBON DIOXIDE 35.3 MMOL/L (24-32); TOTAL PROTEIN 6.1 G/DL (6.4-8.2); eCRCL 97 ML/MIN; eGFR > 90 ML/MIN
[2023-08-21] MEDS ORDERED: LidoCAINE 2% Topical Jelly 11mL syringe TOP ONE (14:50)
== END 2023-08-21 16:03 | disposition swing bed (61) | DRG 203 ==
LOC: ER 08:57 → ED HOLD 15:29 → OBSVTOIN 15:29 → EDBEDREQ 21:34 → PCU 3S 22:10 → INTOOBSV 08-18 15:03 → OBSVTOIN 08-18 15:03
PROVIDERS: ADMIT Family Medicine; ATTEND Family Medicine
PROC: 4A02XM4 Measurement of Cardiac Total Activity, External Approach (ICD-10-PCS; principal; 2023-08-17)
PROC: 3E033HZ Introduction of Radioactive Substance into Peripheral Vein, Percutaneous Approach (ICD-10-PCS; 2023-08-17)
DX: R07.9 Chest pain, unspecified (principal); J96.11 Chronic respiratory failure with hypoxia; I50.9 Heart failure, unspecified; I11.0 Hypertensive heart disease with heart failure; F03.93 Unspecified dementia, unspecified severity, with mood disturbance; G25.81 Restless legs syndrome; N39.0 Urinary tract infection, site not specified; G47.33 Obstructive sleep apnea (adult) (pediatric); G89.4 Chronic pain syndrome; E86.0 Dehydration; J44.9 Chronic obstructive pulmonary disease, unspecified; R73.03 Prediabetes; Z79.899 Other long term (current) drug therapy; Z88.8 Allergy status to other drugs, medicaments and biological substances; Z88.1 Allergy status to other antibiotic agents
CPT/HCPCS: 36415; 71045; 80053; 81001; 82948; 83735; 83880; 84100; 84484; 85025; 87081; 93005; 94640; 94760; 97161; 97530; 99285; A4314; A4615; A6212; A9500; G0378; J0696; J2270; J2405; J7030; J7040